=== PATIENT | male | born 1950 | race Caucasian/White ===

== ENCOUNTER 2016-11-04 15:39 | Emergency (ER) | payer BC, MEDICARE ==
[~2016-11-04 15:39] MED LIST: FUROSEMIDE80 MG PO; METFORMIN HCL500 MG PO; SPIRONOLACTONE100 MG PO
== END 2016-11-04 20:48 | disposition left against medical advice (07) ==
LOC: ER1 15:39
DX: Z53.21 Procedure and treatment not carried out due to patient leaving prior to being seen by health care provider (principal)

== ENCOUNTER → 2016-12-11 | Outpatient (CLI) | payer BC, MEDICARE ==
[2016-12-11 09:41] LABS: HEMOGLOBIN 8.8 gm/dl (14.0-17.5); RED BLOOD COUNT 3.93 M/UL (4.20-5.50)
[2016-12-11 09:58] LABS: BUN/CREATININE RATIO 23 (0-10)
== END ==
LOC: LAB 08:59
PROVIDERS: Emergency Medicine
DX: K74.69 Other cirrhosis of liver (principal); B18.1 Chronic viral hepatitis B without delta-agent; R18.8 Other ascites; R53.83 Other fatigue; R60.0 Localized edema
CPT/HCPCS: 36415; 80053; 84439; 84443; 85027

== ENCOUNTER 2017-04-28 22:36 | Emergency (ER) | payer BC, MEDICARE ==
[2017-04-29 00:25] LABS: HEMOGLOBIN 12.6 gm/dl (14.0-17.5); RED BLOOD COUNT 4.87 M/UL (4.20-5.50); WHITE BLOOD COUNT 9.1 K/UL (4.5-11.0)
== END 2017-04-29 04:09 | disposition expired ==
LOC: ER1 22:36
PROVIDERS: Family Medicine
DX: I46.9 Cardiac arrest, cause unspecified (principal); R18.8 Other ascites; D21.9 Benign neoplasm of connective and other soft tissue, unspecified; Z79.2 Long term (current) use of antibiotics; Z79.899 Other long term (current) drug therapy; Z79.52 Long term (current) use of systemic steroids
CPT/HCPCS: 31500; 36415; 71010; 80053; 82550; 82553; 83874; 84484; 85025; 85610; 92950; 93005; 94640; 94664; 96374; 99285; J0171; J0461; J1940